=== PATIENT | male | born 2000 | race Caucasian/White ===

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

== ENCOUNTER 2021-03-22 21:12 | Emergency (ER) | payer BC ==
[2021-03-22] MEDS ORDERED: Ibuprofen 600 MG Tab PO ONE (21:23)
== END 2021-03-22 22:34 | disposition home or self-care (01) ==
LOC: MW.ED 21:12
DX: S60.812A Abrasion of left wrist, initial encounter (principal); W10.9XXA Fall (on) (from) unspecified stairs and steps, initial encounter; Y93.72 Activity, wrestling
CPT/HCPCS: 73130; 73140; 99283; A9270

== ENCOUNTER 2021-05-09 19:00 | Emergency (ER) | payer OTHER, BC ==
[2021-05-09 20:49] LABS: BLOOD UREA NITROGEN,BUN 17 mg/dL (7.0-18.0); CARBON DIOXIDE,CO2 28.4 mmol/L (21.0-32.0); CHLORIDE,CL 103 mmol/L (98-107); GLUCOSE RANDOM 109 mg/dL (74-106); POTASSIUM,K 3.4 mmol/L (3.5-5.1); SODIUM,NA 143 mmol/L (136-148)
[2021-05-09] MEDS ORDERED: Iopamidol 755 MG/ML 500 ML Multipack Bottle IVPUSH ONE ×2 (21:34→21:53)
== END 2021-05-09 22:53 | disposition home or self-care (01) ==
LOC: MW.ED 19:00
DX: S01.01XA Laceration without foreign body of scalp, initial encounter (principal); V86.69XA Passenger of other special all-terrain or other off-road motor vehicle injured in nontraffic accident, initial encounter; Y92.410 Unspecified street and highway as the place of occurrence of the external cause
CPT/HCPCS: 36415; 70450; 70496; 70498; 72125; 80048; 99284; Q9967

== ENCOUNTER 2023-07-25 08:15 | Emergency (ER) | payer BC ==
[2023-07-25] MEDS: Metoclopramide 10 MG/2 ML SDV IVPUSH ONE (08:50)
[2023-07-25] MEDS: Ketorolac 30 MG/ML SDV IVPUSH ONE (08:50)
[2023-07-25] MEDS: diphenhydrAMINE 50 MG/ML SDV IVPUSH ONE (08:50)
[2023-07-25] MEDS: Sodium Chloride 0.9% 1,000 ML IV ONE (08:51)
[2023-07-25] MEDS: Magnesium Sulfate (4.06 MEQ/ML) 5 GM/10 ML SDV IV ONE (09:53)
[2023-07-25] MEDS: Magnesium Sulfate/Water 2 GM in Premix Bag 1 BAG IV ONE (10:22)
[2023-07-25] MEDS: Dexamethasone 4 MG/ML SDV IVPUSH ONE (10:23)
[2023-07-25] MEDS: Morphine 4 MG/ML Syringe IVPUSH ONE (11:35)
== END 2023-07-25 12:17 | disposition home or self-care (01) ==
LOC: MW.ED 08:15
DX: R51.9 Headache, unspecified (principal); Z75.8 Other problems related to medical facilities and other health care; Z86.16 Personal history of COVID-19
CPT/HCPCS: 70450; 96361; 96365; 96375; 99284; J1100; J1200; J1885; J2270; J2765; J3475; J7030

== ENCOUNTER 2023-08-23 09:05 | Emergency (ER) | payer BC ==
[2023-08-23] MEDS: oxyCODONE 5 MG Tab PO ONE (09:52)
[2023-08-23] MEDS: Ondansetron 4 MG Tab.DIS PO ONE (09:52)
[2023-08-23] MEDS: Lidocaine 1% 5 ML VIAL INJECT ONE (10:43)
== END 2023-08-23 12:03 | disposition home or self-care (01) ==
LOC: MW.ED 09:05
DX: S62.616A Displaced fracture of proximal phalanx of right little finger, initial encounter for closed fracture (principal); W23.1XXA Caught, crushed, jammed, or pinched between stationary objects, initial encounter
CPT/HCPCS: 26725; 73130; 99283; A9270; J3490

== ENCOUNTER 2024-10-28 10:10 | Emergency (ER) | payer BC ==
[2024-10-28] MEDS ORDERED: Sodium Chloride 0.9% 10 ML Syringe FLUSH PRN (10:38)
[2024-10-28] MEDS ORDERED: Sodium Chloride 0.9% 2.5 ML Syringe FLUSH PRN (10:38)
[2024-10-28] MEDS: Ketorolac 30 MG/ML SDV IM ONE (10:53)
[2024-10-28] MEDS: Ketorolac 30 MG/ML SDV IVPUSH ONE (10:53)
[2024-10-28] MEDS: Alum Hydrox/Mag Hydrox/Simeth 15 ML, Lidocaine 2% 5 ML PO ONE (10:54)
[2024-10-28 11:01] LABS: BASOPHILS ABSOLUTE AUTO 0.05 K/uL (0.00-0.20); BASOPHILS PERCENT AUTO 0.7 % (0.0-1.0); EOSINOPHILS ABSOLUTE AUTO 0.11 K/uL (0.00-0.45); EOSINOPHILS PERCENT AUTO 1.5 % (0.0-6.0); IMMATURE GRAN ABSOLUTE AUTO 0.03 K/uL (0.00-0.05); IMMATURE GRAN PERCENT AUTO 0.4 % (0.0-0.4); LYMPHOCYTES ABSOLUTE AUTO 1.57 K/uL (1.00-4.80); LYMPHOCYTES PERCENT AUTO 21.1 % (24.0-44.0); MEAN PLATELET VOLUME 9.9 fL (9.4-12.4); MONOCYTES ABSOLUTE AUTO 0.47 K/uL (0.00-0.80); MONOCYTES PERCENT AUTO 6.3 % (0.0-8.0); NEUTROPHILS ABSOLUTE AUTO 5.22 K/uL (1.80-7.70); NEUTROPHILS PERCENT AUTO 70.0 % (41.0-71.0); NRBC ABSOLUTE 0.00 K/uL (0.00-0.02); NRBC PERCENT 0.0 /100WBC (0.0-0.2); PLATELET COUNT,PLT 249 K/uL (150-400); RED BLOOD CELL COUNT 5.14 M/uL (4.52-5.90); WHITE BLOOD CELL COUNT,WBC 7.45 K/uL (3.9-11.3)
[2024-10-28 11:27] LABS: A/G RATIO 1.6 (0.9-1.6); ALANINE AMINOTRANSFERASE,ALT 59 IU/L (14-63); ASPARTATE AMNIOTRANSFERASE,AST 20 IU/L (15-37); BILIRUBIN TOTAL 0.8 mg/dL (0.2-1.0); BLOOD UREA NITROGEN,BUN 14 mg/dL (7.0-18.0); CARBON DIOXIDE,CO2 27.5 mmol/L (21.0-32.0); CHLORIDE,CL 103 mmol/L (98-107); CREATININE 1.2 mg/dL (0.8-1.3); GLUCOSE RANDOM 90 mg/dL (74-106); POTASSIUM,K 3.9 mmol/L (3.5-5.1); PROTEIN TOTAL,TP 7.5 g/dL (6.4-8.2); SODIUM,NA 141 mmol/L (136-148)
[2024-10-28 11:31] LABS: ESTIMATED GFR 87 mL/min (>60)
== END 2024-10-28 12:26 | disposition home or self-care (01) ==
LOC: MW.ED 10:10
DX: R07.9 Chest pain, unspecified (principal); F17.290 Nicotine dependence, other tobacco product, uncomplicated; Z75.3 Unavailability and inaccessibility of health-care facilities
CPT/HCPCS: 36415; 71046; 80053; 83690; 83735; 84484; 85025; 93005; 96361; 96374; 99285; J1885; J3490; J7030; 93010; 99284; A9270-GY